=== PATIENT | female | born 1945 | race Caucasian/White ===

== ENCOUNTER → 2016-08-29 | Day surgery (SDC) | payer MEDICARE ==
[~2016-08-29] VITALS: Ht 165.1 cm; Wt 61.0 kg
[~2016-08-29] MED LIST: CALC-179 PO; CALC500C16 CHEW; CHOL1TAB35 PO; CYCL5TAB PO; CYCLOPENTOLATE HCL 1% OPHT SOLN 2 ML BTL ONE; EXTR500C PO; FLURBIPROFEN 0.03% OPHT SOLN 2.5 ML BTL ONE; HYALURONIDASE/LIDOCAINE/EPINEPHRINE/BUPIVACAINE 6 ML SYR ONE; MELA5TAB15 PO; MIDAZOLAM HCL 2 MG/2 ML VIAL ONE; MULT-120 PO; OMEP20TA PO; PHENYLEPHRINE HCL 10% OPTH SOLN 5 ML BTL ONE; PROPARACAINE HCL 0.5% OPHT SOLN 15 ML BTL ONE; PROPOFOL 200 MG/20 ML AMP ONE; SENN8.6C PO; SODIUM CHLORID 0.9% 500 ML INJ 500 ML ONE; TRAM50TA PO; TROPICAMIDE 1% OPHT SOLN 15 ML BTL ONE
[2016-08-29 07:41] VITALS: BP 120/65; PULSE 52; RESP 16; TEMP 97.6; O2SAT 100
[2016-08-29 08:01] VITALS: PULSE 60
[2016-08-29] MEDS: LIDOCAINE HCL 1% PF 30 ML VIAL ONE ×2 (08:39)
[2016-08-29] MEDS: TOBRAMYCIN/DEXAMETHASONE OPTH OINT 3.5 GM TUBE ONE ×2 (08:49)
[2016-08-29 09:20] VITALS: BP 124/50; PULSE 57; RESP 16; O2SAT 99
--- NOTE | 2016-09-01 11:10 | MP ---
cc: CARLO SAAVEDRA M.D. [facility] #[id number] DATE OF SURGERY: 08/29/2016 PREOPERATIVE DIAGNOSIS: Visually significant cataract, left eye. POSTOPERATIVE DIAGNOSIS: Visually significant cataract, left eye. OPERATION: Phacoemulsification with posterior chamber lens implantation, left eye. SURGEON: Carlo Saavedra MD ANESTHESIA: Retrobulbar with MAC. COMPLICATIONS: None. PROCEDURE: After informed consent was obtained, the patient was brought into the operative suite and placed on appropriate monitors by the Anesthesia Service. The patient had received a prior retrobulbar injection of local anesthetic by the Anesthesia Service in the holding area. The patient's operative eye was then prepped and draped in the usual sterile fashion. A wire lid speculum was placed. A paracentesis incision was made in the peripheral cornea with a 1 mm kimberly keratome. The anterior chamber was filled with viscoelastic. The anterior chamber was then entered through a stepped, clear corneal incision using a sharp 3 mm kimberly keratome. A circular tear capsulorrhexis was then made with a bent needle cystitome. Following hydrodissection of the lens nucleus with balanced saline, phaco-emulsification of the nucleus was performed using a modified chopping technique. The remaining cortex was removed with irrigation/aspiration. The prior two procedures were both performed using the handpieces of the [employer] phaco unit. The capsular bag was then filled with viscoelastic. The intraocular lens was then injected into the capsular bag and positioned. The type of intraocular lens and its power can be found elsewhere in this chart. The remaining viscoelastic was then removed from the anterior chamber with the IA handpiece. The anterior chamber was reformed with balanced saline. The wound was then closed securely with stromal hydration. It was found to be watertight to an intraocular pressure of at least 30 mmHg by palpation. A small amount of balanced salt solution was then removed through the paracentesis site and the intraocular pressure at the end of the case was approximately 20 by palpation. All drapes were then removed. TobraDex ointment was then placed in the eye, which was closed beneath a semi-pressure patch dressing. The patient tolerated this procedure well and left the operating room awake and alert. The patient is to follow-up in my office in the morning. MD EMILY Donovan/PAUL /9:56 AM /11:08 AM
== END | disposition home or self-care (01) ==
LOC: PHSDC 06:34
PROVIDERS: ATTEND Optometrist Occupational Vision
DX: H25.12 Age-related nuclear cataract, left eye (principal)
CPT/HCPCS: 00142; 66984; J2250; J7040; V2632